=== PATIENT | female | born 1990 | race Caucasian/White ===

== ENCOUNTER → 2018-06-02 | Outpatient (CLI) | payer OTHER ==
--- NOTE | 2018-06-03 11:24 | US ---
EXAMINATION TYPE: US carotid duplex BILAT DATE OF EXAM: 06/02/2018 COMPARISON: NONE CLINICAL HISTORY: R41.0 CONFUSION; patient stated has confusion regarding switching words; left arm w eakness and numbness; has postural orthostatic tachycardia syndrome since age16; on Beta blockers x 2 months; on cholesterol lowering medications x 2 weeks; having MRI of brain next week; smoker EXAM MEASUREMENTS: RIGHT: Peak Systolic Velocity (PSV) cm/sec ----- Right CCA: 139.0 distal ----- Right ICA: 133.0 mid ----- Right ECA: 116.0 ICA/CCA ratio: 0.96 RIGHT: End Diastole cm/sec ----- Right CCA: 27.2 ----- Right ICA: 40.5 ----- Right ECA: 13.3 LEFT: Peak Systolic Velocity (PSV) cm/sec ----- Left CCA: 117.0 distal ----- Left ICA: 114.0 prox ----- Left ECA: 109.0 ICA/CCA ratio: 0.97 LEFT: End Diastole cm/sec ----- Left CCA: 28.5 ----- Left ICA: 29.1 ----- Left ECA: 8.22 VERTEBRALS (direction of flow): Right Vertebral: Antegrade Left Vertebral: Antegrade Rhythm: Normal Elevated PSV is noted throughout bilateral carotid systems without evidence of carotid artery stenosi s. Grayscale, color Doppler, spectral Doppler imaging performed of the carotid arteries. Waveform analys is does not show significant stenosis. IMPRESSION: No hemodynamic significant stenosis of the proximal internal carotid arteries bilaterall y by Doppler criteria, an indirect measurement of carotid stenosis
== END | disposition home or self-care (01) ==
LOC: RADUSWWP 15:39
PROVIDERS: ATTEND Family Medicine
DX: R41.0 Disorientation, unspecified (principal); Z88.5 Allergy status to narcotic agent; Z88.8 Allergy status to other drugs, medicaments and biological substances; Z91.040 Latex allergy status
CPT/HCPCS: 93880

== ENCOUNTER → 2018-06-05 | Outpatient (CLI) | payer OTHER ==
--- NOTE | 2018-06-05 22:13 | MR ---
EXAMINATION TYPE: MR brain wo/w con DATE OF EXAM: 06/05/2018 COMPARISON: NONE HISTORY: Confusion, dizziness, headaches, lt arm numbness TECHNIQUE: Multiplanar, multisequence images of the brain and brainstem is performed without and with IV contras t, utilizing 6 mL intravenous Gadavist . FINDINGS: Diffusion weighted images demonstrate no evidence of a recent infarct or other diffusion ab normality. There is no extra-axial fluid collection or significant white matter signal abnormality. The ventricular system and cisternal spaces are normal in size and appearance. The brain volume is age appropriate. Midline structures demonstrate normal morphology. The craniocervical junction appears within normal limits. Post contrast images demonstrate no abnormal enhancement. The dural venous sinuses appear pa tent. The visualized sinuses are clear and the globes are intact. IMPRESSION: Fairly unremarkable study. No suspicious finding is seen to account for patient's symptom s.
== END | disposition home or self-care (01) ==
LOC: RADMRIMAIN 20:54
PROVIDERS: ATTEND Family Medicine
DX: R41.0 Disorientation, unspecified (principal)
CPT/HCPCS: 70553; A9585

== ENCOUNTER → 2018-06-13 | Outpatient (CLI) | payer OTHER ==
[2018-06-13 17:21] LABS: LDL Cholesterol,Calculated 191.6 mg/dL (0.0-131.0); VLDL Calculation 15.4 mg/dL (5.00-40.00)
== END ==
LOC: LABWHC1 10:57
PROVIDERS: ATTEND Internal Medicine Cardiovascular Disease
DX: E78.5 Hyperlipidemia, unspecified (principal)
CPT/HCPCS: 36415; 80061; 84450; 84460

== ENCOUNTER 2018-06-21 13:41 | Emergency (ER) | payer OTHER ==
--- NOTE | 2018-06-21 14:50 | CT ---
EXAMINATION TYPE: CT brain wo con DATE OF EXAM: 06/21/2018 COMPARISON: NONE HISTORY: Left ear canal with blood, headaches CT DLP: 1032.4 mGycm. Automated Exposure Control for Dose Reduction was Utilized. TECHNIQUE: CT scan of the head is performed without contrast. FINDINGS: There is no acute intracranial hemorrhage, mass effect, or midline shift identified. The ventricles and sulci are within normal limits in size. The globes are intact and the visualized sin uses are clear. Mastoid air cells are well aerated as are the middle ear cavities. External auditory canals are patent. IMPRESSION: No acute intracranial hemorrhage, mass effect, or midline shift is seen. No fluid is see n within the middle ear cavity nor mastoid air cells. No cerumen impaction of the external auditory c anals.
[2018-06-21] MEDS ORDERED: KETOROLAC 30 MG/ML 1 ML VIAL IM STA (15:06)
--- NOTE | 2018-06-21 15:06 | ED ---
Headache HPI - General Chief Complaint: Headache Stated Complaint: Headaches Time Seen by Provider: 06/21/18 14:08 Mode of arrival: ambulatory Limitations: no limitations - History of Present Illness Initial Comments: 27-year-old male presenting for headache ear pain 3-4 weeks. Patient states she has had a headache and some ear pain as well as jaw pain since she had her upper wisdom teeth removed by Dr. Alanis. She states she was told she had a bone chip of the left upper jaw that occurred during the surgery. Patient states she has had consistent pain since that is helped mildly by Tylenol No. 3. Patient states she had about 3 days of no symptoms however for the past 3 days they have returned. She states they're identical to when she experienced some postoperatively. She denies any fever or night sweats facial swelling she denies any general malaise. She has a visual changes sensation deficits of the upper or lower extremities she denies any weakness of the upper or lower extremities these changes neck stiffness nausea vomiting photophobia diplopia. Patient states she did look in her ear and thought she saw something red in the right ear. Patient was concerned that the headache was last along although she was told by Dr. Alanis she may experience these symptoms (per pt). Upon arrival patient appears well nontoxic - Related Data Home Medications Medication Instructions Recorded Confirmed ALPRAZolam [Xanax] 0.25 mg PO DAILY PRN 06/21/18 06/21/18 Evolocumab [Repatha Syringe] 140 mg SQ Q14D 06/21/18 06/21/18 Ibuprofen [Motrin] 800 mg PO TID PRN 06/21/18 06/21/18 Metoprolol Tartrate [Lopressor] 12.5 mg PO BID 06/21/18 06/21/18 Mometasone Furoate [Nasonex Nasal 1 spray EA NOSTRIL DAILY PRN 06/21/18 06/21/18 [place]] PARoxetine [Paxil] 20 mg PO DAILY 06/21/18 06/21/18 Allergies Allergy/AdvReac Type Severity Reaction Status Date / Time acetaminophen Allergy Nausea & Verified 06/21/18 14:14 [From Darvocet-N] Vomiting propoxyphene Allergy Nausea & Verified 06/21/18 14:14 [From Darvocet-N] Vomiting Review of Systems ROS Statement: Those systems with pertinent positive or pertinent negative responses have been documented in the HPI. ROS Other: All systems not noted in ROS Statement are negative. Past Medical History Additional Past Medical History / Comment(s): hypotension History of Any Multi-Drug Resistant Organisms: None Reported Past Surgical History: Orthopedic Surgery, Tonsillectomy Additional Past Surgical History / Comment(s): wisdom teeth, anahi feet Past Psychological History: Anxiety Smoking Status: Current every day smoker Past Alcohol Use History: None Reported Past Drug Use History: None Reported General Exam - General Exam Comments Initial Comments: General: The patient is awake and alert, in no distress, and does not appear acutely ill. Eye: +3 mm pupils are equal, round and reactive to light, extra-ocular movements are intact. No nystagmus. There is normal conjunctiva bilaterally. No signs of icterus. Ears, nose, mouth and throat: There are moist mucous membranes and no oral lesions. No facial swelling no oral abscess.. TM no abnormalities of the EAC or TM. Neck: The neck is supple, there is no tenderness or JVD. Cardiovascular: There is a regular rate and rhythm. No murmur, rub or gallop is appreciated. Respiratory: Lungs are clear to auscultation, respirations are non-labored, breath sounds are equal. No wheezes, stridor, rales, or rhonchi. Gastrointestinal: Soft, non-distended, non-tender abdomen without masses or organomegaly noted. There is no rebound or guarding present. No CVA tenderness. Bowel sounds are unremarkable. Musculoskeletal: Normal ROM, no tenderness. Strength 5/5. Sensation intact. Radial pulses equal bilaterally 2+. Neurological: A&O x 3. CN II-XII intact, memory intact to immediately, intermediate and car rider recall. Able to follow simple verbal. Able to name a common object (pen). High quality, labial (pa) and lingual (la) spe Light touch and temperature sensation present over the face, chest, abdomen, back, UE bilaterally, and LE bilaterally. Able to localize point during point localization b/l and extinction. No visible bulk atrophy, hypertrophy, fasciculations, or myoclonus of the UE or LE b/l. Full PROM in UE and LE b/l. Bilateral muscle strength 5/5 for the following muscles: deltoid, biceps, triceps, brachioradialis, wrist extensors/flexor, hip flexor, hip abductors/adductors, hamstrings, quadriceps, feet dorsiflexors/plantar flexors. Finger to nose, finger to the examiners finger, and heel to reece coordinated and accurate b/l. Coordinated and even demonstration of hand flip, finger to thumb, and toe tap b/l. Gait is coordinated and even in stride with tandem, toe and heel walk. Maintains balance with monopedal stance. (-) Romberg. (-) pronator drift. No nuchal rigidity. (-) Brudzinskis and Kernig signs. Skin: Skin is warm and dry and no rashes or lesions are noted. Psychiatric: Cooperative, appropriate mood & affect, normal judgment. Limitations: no limitations Course Vital Signs 06/21/18 06/21/18 14:02 15:20 Temperature 98.5 F 99.2 F Pulse Rate 74 57 L Respiratory 20 18 Rate Blood Pressure 127/73 112/76 O2 Sat by Pulse 98 97 Oximetry Medical Decision Making - Medical Decision Making Well-appearing 27-year-old female presenting for jaw ear and headache. Patient had removal of her upper wisdom teeth 3 weeks prior. Patient states the symptoms have been pretty persistent since. She states she was told she had a bone chip of the left upper aspect. She states this is where most the pain is. Patient is most concerned they're lasting so long and presents emergency department for evaluation. Patient has no focal deficits on examination. She denies any constitutional symptoms such as fever chills night sweats. She has no focal I swelling of the oral cavity nor face. No anterior or posterior lymphadenopathy. Tympanic membranes and external ocular canals within normal limits. Hearing intact. Patient appears well nontoxic. Vital signs within acceptable limits. CT was obtained revealing no acute process. At this time feel pt complaints most likely related to recent surgery, especially with history of bone chip. She is to follow-up with oral surgery as well as ENT. I discussed the case in detail with Dr. Rodriguez with this time is agreeable to plan of discharge and outpatient follow-up. Patient is agreeable to plan as well as all return parameters which were discussed at length which included immediate return for 12 and a fever worsening symptoms or facial swelling. Patient verbalized understanding and was discharged appearing well Disposition Clinical Impression: Headache, Ear pain, Jaw pain Disposition: HOME SELF-CARE Condition: Good Instructions (If sedation given, give patient instructions): Acute Headache (ED) Additional Instructions: Please use medication as discussed. Please follow-up with family doctor in the next 2 days, please follow-up with your oral surgeon. Please return to emergency room if the symptoms increase or worsen or for any other concerns, neck stiffness, fever, increase in headache Is patient prescribed a controlled substance at d/c from ED?: No Referrals: Sergio Bal MD [Primary Care Provider] - 1-2 days Eliud Alanis DDS [STAFF PHYSICIAN] - 1-2 days Mike Lopez MD [STAFF PHYSICIAN] - 1-2 days Time of Disposition: 15:06
[2018-06-21 15:21] VITALS: BP 112/76; PULSE 57; RESP 18; TEMP 99.2
== END 2018-06-21 15:20 | disposition home or self-care (01) ==
LOC: EC 13:41
DX: R51 Headache (principal); R68.84 Jaw pain; H92.09 Otalgia, unspecified ear; F41.9 Anxiety disorder, unspecified; F17.200 Nicotine dependence, unspecified, uncomplicated; Z79.899 Other long term (current) drug therapy; Z88.5 Allergy status to narcotic agent; Z88.6 Allergy status to analgesic agent
CPT/HCPCS: 70450; 99284; 96372; J1885

== ENCOUNTER → 2020-01-04 | Outpatient (CLI) | payer OTHER ==
--- NOTE | 2020-01-04 15:17 | XR ---
EXAMINATION TYPE: XR cervical spine comp DATE OF EXAM: 01/04/2020 COMPARISON: None HISTORY: Neck and back pain TECHNIQUE: Five-view cervical spine FINDINGS: Foramen are patent. Prevertebral space is normal. Posterior spinal lamellar line is straigh tened. There is a kyphosis centered at approximately C4 within the upper cervical spine. Disc heights are preserved. Vertebral body heights are preserved. Odontoid is limited with overlying maxilla and occiput. IMPRESSION: 1. Cervical kyphosis in the upper cervical spine. 2. No acute osseous abnormality
--- NOTE | 2020-01-04 15:25 | XR ---
EXAMINATION TYPE: XR thoracic spine 2V DATE OF EXAM: 01/04/2020 COMPARISON: None HISTORY: Pain TECHNIQUE: Three-view thoracic spine FINDINGS: There are 12 thoracic type vertebral bodies. Pedicles are intact. Disc heights are preserve d. Vertebral body heights are preserved. There is a scoliosis through the thoracic spine with convexi ty to the right centered at T6. IMPRESSION: 1. Scoliosis.
--- NOTE | 2020-01-04 15:26 | XR ---
EXAMINATION TYPE: XR lumbosacral spine min 4V DATE OF EXAM: 01/04/2020 COMPARISON: None HISTORY: Pain TECHNIQUE: Five-view lumbar spine FINDINGS: There 5 lumbar-type vertebral bodies. The pedicles are intact. No spondylolytic defects are evident. Disc heights are preserved. Vertebral body heights are preserved. Alignment is normal. IMPRESSION: 1. Normal 5 view lumbar spine
== END | disposition home or self-care (01) ==
LOC: RADXRMAIN 12:54
PROVIDERS: ATTEND Internal Medicine
DX: M41.84 Other forms of scoliosis, thoracic region (principal); M54.5 Low back pain
CPT/HCPCS: 72050; 72070; 72110

== ENCOUNTER 2020-08-29 12:41 | Emergency (ER) | payer OTHER ==
[2020-08-29 12:52] VITALS: BP 119/78; PULSE 78; RESP 20; TEMP 98.1
--- NOTE | 2020-08-29 14:01 | ED ---
ENT HPI - General Chief complaint: ENT Stated complaint: Ear pain & mouth infection Time Seen by Provider: 08/29/20 12:56 Source: patient, RN notes reviewed Mode of arrival: ambulatory Limitations: no limitations - History of Present Illness Initial comments: 30-year-old female presents emergency Department chief complaint of right-sided dental infection. Patient's been having issues in which she states she started having drainage and which she describes as pus like material. Patient has been seen by dentist unclear what is happening. Patient denies any fevers or chills states this pain that radiates towards her right ear which is concerned today. She states several weeks ago she was on antibiotics. Denies any difficulty swallowing no sore throat no headache. - Related Data Home Medications Medication Instructions Recorded Confirmed ALPRAZolam [Xanax] 0.25 mg PO DAILY PRN 06/21/18 06/21/18 Evolocumab [Repatha Syringe] 140 mg SQ Q14D 06/21/18 06/21/18 Ibuprofen [Motrin] 800 mg PO TID PRN 06/21/18 06/21/18 Metoprolol Tartrate [Lopressor] 12.5 mg PO BID 06/21/18 06/21/18 Mometasone Furoate [Nasonex Nasal 1 spray EA NOSTRIL DAILY PRN 06/21/18 06/21/18 [place]] PARoxetine [Paxil] 20 mg PO DAILY 06/21/18 06/21/18 Previous Rx's Medication Instructions Recorded Amoxicillin/Potassium Clav 1 tab PO Q12HR #20 tab 08/29/20 [Augmentin 875-125 Tablet] Allergies Allergy/AdvReac Type Severity Reaction Status Date / Time acetaminophen Allergy Nausea & Verified 08/29/20 12:52 [From Darvocet-N] Vomiting propoxyphene Allergy Nausea & Verified 08/29/20 12:52 [From Darvocet-N] Vomiting Review of Systems ROS Statement: Those systems with pertinent positive or pertinent negative responses have been documented in the HPI. ROS Other: All systems not noted in ROS Statement are negative. Past Medical History Past Medical History: Asthma Additional Past Medical History / Comment(s): hypotension History of Any Multi-Drug Resistant Organisms: None Reported Past Surgical History: Orthopedic Surgery, Tonsillectomy Additional Past Surgical History / Comment(s): wisdom teeth, anahi feet Past Psychological History: Anxiety Smoking Status: Current every day smoker Past Alcohol Use History: None Reported Past Drug Use History: None Reported General Exam Limitations: no limitations General appearance: alert, in no apparent distress Head exam: Present: atraumatic, normocephalic, normal inspection Eye exam: Present: normal appearance, PERRL, EOMI. Absent: scleral icterus, conjunctival injection, periorbital swelling ENT exam: Present: mucous membranes moist, TM's normal bilaterally, normal external ear exam. Absent: normal exam, normal oropharynx (Mild erythema along the gumline noted in the right upper) Neck exam: Present: normal inspection, full ROM. Absent: tenderness, meningismus, lymphadenopathy Respiratory exam: Present: normal lung sounds bilaterally. Absent: respiratory distress, wheezes, rales, rhonchi, stridor Cardiovascular Exam: Present: regular rate, normal rhythm, normal heart sounds. Absent: systolic murmur, diastolic murmur, rubs, gallop, clicks Course Vital Signs 08/29/20 12:50 Temperature 98.1 F Pulse Rate 78 Respiratory 20 Rate Blood Pressure 119/78 O2 Sat by Pulse 99 Oximetry Medical Decision Making - Medical Decision Making X-rays unremarkable. Patient will be placed on Augmentin. Patient will follow- up with oral surgery return parameters were discussed. Disposition Clinical Impression: Dental infection, Otalgia Disposition: HOME SELF-CARE Condition: Stable Instructions (If sedation given, give patient instructions): Toothache (ED) Additional Instructions: Please return to the Emergency Department if symptoms worsen or any other concerns.Please follow up with the [facility] dental clinic. [facility] [place] [address]. Phone number for new patients or [phone] for existing patients. Prescriptions: Amoxicillin/Potassium Clav [Augmentin 875-125 Tablet] 1 tab PO Q12HR #20 tab Is patient prescribed a controlled substance at d/c from ED?: No Referrals: Ab Mensah MD [Primary Care Provider] - 1-2 days Hernesto Diaz DDS [STAFF PHYSICIAN] - 1-2 days Time of Disposition: 14:17
--- NOTE | 2020-08-29 14:05 | XR ---
EXAMINATION TYPE: XR mandible limited <4V DATE OF EXAM: 08/29/2020 COMPARISON: NONE HISTORY: right side dental infection. TECHNIQUE: 5 views mandible FINDINGS: No definite acute fracture, dislocation or bony erosion; CT is more sensitive. Direct visualization is recommended for dental infection. IMPRESSION: No definite acute fracture, dislocation or bony erosion; CT is more sensitive. Direct visualization is recommended for dental infection.
== END 2020-08-29 14:34 | disposition home or self-care (01) ==
LOC: EC 12:41
DX: K04.7 Periapical abscess without sinus (principal); J45.909 Unspecified asthma, uncomplicated; F41.9 Anxiety disorder, unspecified; F17.200 Nicotine dependence, unspecified, uncomplicated; Z79.1 Long term (current) use of non-steroidal anti-inflammatories (NSAID); Z79.51 Long term (current) use of inhaled steroids
CPT/HCPCS: 70100; 99283

== ENCOUNTER → 2023-10-24 | Outpatient (CLI) | payer OTHER ==
--- NOTE | 2023-10-24 10:48 | USB ---
Reason for Exam: Clinical finding. Findings: The whole breast of both breasts, the axilla of both breasts and the retroareolar of both breasts were scanned. No solid or cystic masses are identified. There is some mild duct prominence posterior to the right nipple. If patient's pain is persistent, follow-up mammogram in 3 months could be performed. In the absence of persistent pain or change in clinical symptoms, a sliding screening mammography could be performed at age 35.No solid or cystic masses are identified. There is some mild duct prominence posterior to the right nipple. If patient's pain is persistent, follow-up mammogram in 3 months could be performed. In the absence of persistent pain or change in clinical symptoms, a baseline screening mammography could be performed at age 35. Overall Assessment: Benign, BI-RAD 2 Management: Screening Mammogram of both breasts at age 35. A clinical breast exam by your physician is recommended on an annual basis and results should be correlated with mammographic findings. This exam should not preclude additional follow-up of suspicious palpable abnormalities. Results were given to the patient verbally at the time of exam. [facility], , 10/24/2023 10:46 AM. Electronically signed and approved by: Fredrick Joe D.O. Radiologis
--- NOTE | 2023-10-24 11:35 | US ---
EXAMINATION TYPE: US abdomen complete DATE OF EXAM: 10/24/2023 COMPARISON: NONE CLINICAL INDICATION: Female, 33 years old with history of R10.9 ABD PAIN; Right side pain. TECHNIQUE: Multiple sonographic images of the abdomen are obtained. FINDINGS: EXAM MEASUREMENTS: Liver Length: 15.4 cm Gallbladder Wall: 0.2 cm CBD: 0.5 cm Spleen: 10.8 cm Right Kidney: 10.8 x 5.0 x 4.8 cm Left Kidney: 12.2 x 4.3 x 5.2 cm Pancreas: wnl Liver: wnl Gallbladder: No stones or wall thickening Evidence for sonographic Blanco's sign: neg CBD: wnl Spleen: wnl Right Kidney: Appears slightly low and into the pelvis region. Possible malrotation. Left Kidney: No hydronephrosis or masses seen Upper IVC: wnl Abd Aorta: No AAA visualized at time of scan IMPRESSION: 1. Unremarkable abdomen ultrasound. [facility], , 10/24/2023 11:33 AM
== END | disposition home or self-care (01) ==
LOC: RADUSWWP 09:34
PROVIDERS: ATTEND Family Medicine
DX: N64.4 Mastodynia (principal); R10.9 Unspecified abdominal pain
CPT/HCPCS: 76700

== ENCOUNTER → 2024-01-27 | Outpatient (CLI) | payer OTHER ==
--- NOTE | 2024-01-27 14:26 | MM ---
Reason for Exam: Clinical finding. Baseline mammogram. Patient History: Menarche at age 13. First Full-Term at age 32. Late child-bearing (after 30). Premenopausal. Paternal grandmother had breast cancer at or over age 50. Last menstrual period: 01/19/2024 Prior Study Comparison: 10/24/2023 Bilateral US breast BILAT, [facility]. Patient's first Mammogram. Tissue Density: The breasts are extremely dense, which lowers the sensitivity of mammography. Findings: Analyzed By CAD. No evidence for mass or distortion. The examination is limited by extreme breast fibroglandular tissue. Given patient's continued symptoms do recommend MRI for further evaluation. No suspicious calcifications. No skin thickening appreciated at this time. Overall Assessment: Incomplete: need additional imaging evaluation, BI-RAD 0 Management: Diagnostic Breast MRI of both breasts. . Results were given to the patient verbally at the time of exam. Patient should continue monthly self-breast exams. A clinical breast exam by your physician is recommended on an annual basis. This exam should not preclude additional follow-up of suspicious palpable abnormalities. Note on Miya scores and lifetime risk: 1. A Miya score greater than 3% is considered moderate risk. If this is the case, consider specialist referral to assess eligibility for a risk reducing agent. 2. If overall lifetime risk for the development of breast cancer is 20% or higher, the patient may qualify for future screening with alternating mammogram and breast MRI. [facility], , 01/27/2024 2:23 PM. Electronically signed and approved by: Al Serna M.D. Radiologis
== END | disposition home or self-care (01) ==
LOC: RADMAMWWP 14:02
PROVIDERS: ATTEND Family Medicine
DX: N64.52 Nipple discharge (principal); Z80.3 Family history of malignant neoplasm of breast; R92.343 Mammographic extreme density, bilateral breasts
CPT/HCPCS: 77066; G0279; 77062

== ENCOUNTER → 2024-02-09 | Outpatient (CLI) | payer OTHER ==
[2024-02-09 13:51] VITALS: BP 119/76; PULSE 71; RESP 16; TEMP 98.4
--- NOTE | 2024-02-09 14:34 | P.GSCN ---
History of Present Illness Consult date: 02/09/24 Reason for Consult: breast pain Requesting physician: Maribel Hoffman History of present illness: Chung is a 33 year old female seen in consultation for Dr. Hoffman regardign breast pain. She had a bilateral breast ultrasound on 10-24-23 which was BIRAD 2, she had a bilateral mammogram on 01-27-24 which showed very dense breat and bilateral MRI recommended. This was personally interpreted. She is having bloody nipple discharge and has purluent drainage. She has had some hot flashes, but not fever or chills. She has a hard lump on her right nipple. After 1 year she stopped breast feeding in May. She also complains of pain under the left breast. She does have bilateral milky discharge. She had a clogged milk duct in the past. She has not had any surgery on her breast. NO recent trauma to her breast. Her breast symptoms are not related to her menstrual cycle. She just recently completed a course of antibiotic therapy of Flagyl for the nipple discharge which cultures were done and this was positive, she does not know the names of the organisms. States a prolactin level was done in her primary care doctor's office and was within normal limits. Caffeine: 1 energy drink and 1 cup of coffee/day nicotine: < 1/2 PPD; she was smoking when she was breast feeding chocolate: none BCP: 2 months, not recently hormones: none Family History: paternal grandmother: breast cancer paternal grandfather: skin cancer maternal grandfather: kidney and bone cancer, skin cancer Hormonal History: menarche: 13 , breast fed: yes, age at : 32 periods regular coming early Surgical HIstory: Tonsillectomy flat feet Medical History: asthma POTS fibromylagia familal hypercholesterolamia Social History: nicotine: as above alcohol: none drugs: none Review of Systems - Constitutional Denies fever, Denies weight loss - EENT Eyes: denies blurred vision Ears: deny: decreased hearing, tinnitus Ears, nose, mouth and throat: Denies dysphagia - Breasts bilateral: as per HPI - Cardiovascular Reports as per HPI, Denies chest pain, Denies shortness of breath - Respiratory Respiratory Comment(s): used to have asthma Reports cough - Gastrointestinal Gastrointestinal Comment(s): upset stomach Reports as per HPI - Genitourinary Genitourinary: Denies dysuria, Denies hematuria Menstruation: Reports period normal - Musculoskeletal Musculoskeleta Comment(s): back and neck pain - Integumentary Integumentary Comment(s): crusty spot near the right nipple went away Denies rash, Denies unusual bruising - Neurological Denies headaches, Denies syncope - Psychiatric Reports anxiety - Endocrine Reports fatigue - Hematologic/Lymphatic Denies easy bleeding, Denies easy bruising - Allergic/Immunologic Reports seasonal allergies Past Medical History Past Medical History: Asthma Additional Past Medical History / Comment(s): hypotension History of Any Multi-Drug Resistant Organisms: None Reported Past Surgical History: Orthopedic Surgery, Tonsillectomy Additional Past Surgical History / Comment(s): wisdom teeth, anahi feet Past Psychological History: Anxiety Smoking Status: Current every day smoker Past Alcohol Use History: None Reported Past Drug Use History: None Reported Medications and Allergies Home Medications Medication Instructions Recorded Confirmed Type ALPRAZolam [Xanax] 0.25 mg PO DAILY PRN 06/21/18 02/09/24 History Evolocumab [Repatha Syringe] 140 mg SQ Q14D 06/21/18 02/09/24 History Ibuprofen [Motrin] 800 mg PO TID PRN 06/21/18 02/09/24 History Metoprolol Tartrate [Lopressor] 12.5 mg PO BID 06/21/18 02/09/24 History Mometasone Furoate [Nasonex Nasal 1 spray EA NOSTRIL DAILY PRN 06/21/18 02/09/24 History [place]] PARoxetine [Paxil] 20 mg PO DAILY 06/21/18 02/09/24 History Amoxicillin/Potassium Clav 1 tab PO Q12HR #20 tab 08/29/20 02/09/24 Rx [Augmentin 875-125 Tablet] Allergies Allergy/AdvReac Type Severity Reaction Status Date / Time acetaminophen Allergy Nausea & Verified 02/09/24 13:48 [From Darvocet-N] Vomiting propoxyphene Allergy Nausea & Verified 02/09/24 13:48 [From Darvocet-N] Vomiting Surgical - Exam Vital Signs Temp Pulse Resp BP Pulse Ox 98.4 F 71 16 119/76 99 02/09/24 13:48 02/09/24 13:48 02/09/24 13:48 02/09/24 13:48 02/09/24 13:48 - General moderate distress - Eyes normal ocular movement - ENT no hearing loss - Neck trachea midline - Respiratory normal respiratory effort - Cardiovascular Rhythm: regular Heart Sounds: normal: S1, S2 - Abdomen Abdomen: soft, non tender, no guarding, no rigid, no rebound - Integumentary normal turgor - Neurologic no disoriented, no combative - Musculoskeletal normal gait - Psychiatric oriented to time, oriented to person, oriented to place, speech is normal, memory intact Breast Exam: BRA: 32DD Inspection: Bilateral grade 1 ptosis, right nipple is larger than left nipple Palpation: Right breast: Multi positional exam fibrocystic changes, dense breast, milk discharge from the nipple however there is also what appears to be sebum from the upper inner quadrant area of the nipple, no blood on today's exam, guaiac test negative Right axilla: No adenopathy of concern Left breast: Multi positional exam fibrocystic changes, dense breast, milky discharge from the nipples Left axilla: No adenopathy of concern Results Bilateral mammogram reviewed, very dense breast Breast ultrasound reviewed and personally interpreted Assessment and Plan Assessment: Impression: Bloody right nipple discharge which has stopped and now has just some thick nipple discharge Bilateral milky nipple discharge Very dense breast on exam Bloody discharge and green discharge has stopped with the antibiotic therapy Plan: bilateral breast MRI follow up after this is done obtain prolactin level follow up after the above Pain cultures from primary care doctor's office of the nipple discharge CC: Dr. Ryder Boogie
== END ==
LOC: WWCWWP 12:42
PROVIDERS: ATTEND Surgery
DX: N64.52 Nipple discharge (principal); R92.343 Mammographic extreme density, bilateral breasts; F17.200 Nicotine dependence, unspecified, uncomplicated; Z88.5 Allergy status to narcotic agent; Z88.8 Allergy status to other drugs, medicaments and biological substances; Z80.3 Family history of malignant neoplasm of breast

== ENCOUNTER → 2024-03-12 | Outpatient (CLI) | payer OTHER ==
--- NOTE | 2024-03-14 07:48 | BMR ---
EXAM DATE: 03/12/2024 EXAM DESCRIPTION: MRI-Breast Bilat (W/WO Contrast) INDICATION: Infected nipple with green pus and hard lump. Left breast pain near ribs. Family history of breast cancer in grandmother. COMPARISON: PRIOR MRIs: None available. Correlation to mammograms: 01/27/2024 Correlation to ultrasound: 10/24/2023. CONTRAST: 5.5 cc Gadavist IV gadolinium contrast TECHNIQUE: Images were obtained at [facility] and interpreted by [facility] Radiology. Multiplanar multisequence MR imaging of both breasts was performed with a dedicated breast coil. Images were obtained before and after administration of IV gadolinium, using the standard breast mass protocol. Computer aided detection was utilized for interpretation. FINDINGS: LMP: Not provided General breast composition: The breast tissue is extremely dense Background parenchymal enhancement: Mild RIGHT BREAST: Along the medial aspect of the nipple, there is a 1.6 cm ring-enhancing mass most compatible with abscess. Head approximately 12 o'clock, 7 cm from the nipple, there is abnormal enhancement/mass estimating 2.4 x 1.3 cm abutting the pectoralis muscle. Additional areas of enhancement in the right breast considered benign. LEFT BREAST: The T2 weighted series shows no areas of abnormal signal intensity. Review of the dynamic series shows no early or abnormal enhancement. LYMPH NODES: There is no evidence of internal mammary or axillary adenopathy. IMPRESSION: RIGHT BREAST: 1. 1.6 cm ring-enhancing lesion along the medial right nipple most compatible with nipple abscess. Antibiotic therapy and therapeutic aspiration is recommended with short-term follow-up to ensure resolution. 2. Mildly enhancing 2.4 cm masslike area in the right breast at 12 o'clock, 7 cm from the nipple. Targeted ultrasound possible biopsy is recommended. LEFT BREAST: No MR evidence of malignancy. OVERALL ASSESSMENT -- BI-RADS 4: Suspicious for malignancy ANNUAL SCREENING BREAST MRI IN ADDITION TO MAMMOGRAPHY IS RECOMMENDED IN PATIENTS WITH LIFETIME RISK OF BREAST CANCER >20% MTDD
== END | disposition home or self-care (01) ==
LOC: RADMRIMAIN 17:51
PROVIDERS: ATTEND Surgery
DX: N64.52 Nipple discharge (principal); Z80.3 Family history of malignant neoplasm of breast
CPT/HCPCS: C8908; A9585; 77049

== ENCOUNTER → 2024-03-22 | Day surgery (SDC) | payer OTHER ==
--- NOTE | 2024-03-28 11:39 | USB ---
Prior Study Comparison: 01/27/2024 Bilateral MG 3D diag mammo w/cad [facility]. Pathology Description: Location: 11 o'clock. Marker Left Behind. Needle Type: Mammotome Cores: 4 Gauge: 13 The oval hypoechoic nodule in the peripheral 11:00 position right breast nearly at the axillary tail is identified and targeted for biopsy. This measures 1.4 x 0.6 x 0.4 cm. Not entirely clear if this corresponds to the MRI finding noted at the 12:00 position. If benign results, six-month follow-up MRI is recommended to determine exact clip position and to reassess the 12:00 MRI finding. Presently, the 12:00 position is rescanned and no discrete ultrasound abnormality is seen. The procedure of ultrasound guided core biopsy was explained to the patient. Benefits, alternatives, and risks were discussed. An informed consent was then obtained. The patient was placed in supine positioning for imaging and for the procedure. The overlying skin was prepped and draped in usual sterile fashion. Lidocaine buffered with bicarbonate was used as anesthetic into the skin followed by lidocaine/epinephrine into the subcutaneous tissue up to area of concern in the right breast. Under ultrasound guidance, a 13-gauge vacuum-assisted mammotome Elite biopsy gun device was used to obtain 4 core samples. Following this, a HydroMark butterfly clip was left in lesion. The patient tolerated the procedure well without any immediate complication. The patient was kept in the radiology department for short stay after the procedure and then discharged home in stable condition. Postprocedure mammogram: Not performed given far peripheral/axillary position. IMPRESSION: Successful, uncomplicated ultrasound guided core biopsy of nodule in the far peripheral 11:00 right breast near the axillary tail. In the setting of nipple infection, this may represent a reactive lymph node. Not entirely clear as to if this corresponds to the MRI finding noted at the 12:00 position. If benign results, six-month follow-up MRI is recommended to determine exact clip position in relation to the 12:00 MRI finding. The MRI finding can also be reassessed at that time. Full pathology results to follow. [facility], , 03/22/2024 10:48 AM. Pathology Results: Result: Benign. RIGHT BREAST, 11:00, ULTRASOUND GUIDED BIOPSY: Fragments of reactive lymphoid tissue (see note). Negative for malignancy. Notes Examination shows multiple circumscribed areas having reactive lymphoid tissue with reactive germinal centers present. Examination is negative for granulomatous inflammation or features of malignancy. To confirm the diagnosis, immunostains are performed with appropriate controls on the tissue block. CD79a stains positive within B-cells. CD3 stains positive within T-cells and has a predominance of T-cell staining over B-cell staining. These findings support the diagnosis of reactive lymphadenopathy. Both CK7 and FABIAN stains are negative for carcinoma. Overall Assessment: Benign Management: Diagnostic Breast MRI of both breasts in 6 months. Compatible with reactive lymph node in setting of nipple infection. Recommend 6 month follow up breast MRI to reassess to 12:00 area seen on MRI and to determine if the biopsied site corresponds to this area. Electronically signed and approved by: Israel Roegrs M.D. Radiologist
== END ==
LOC: RADUSWWP 07:07
PROVIDERS: ATTEND Surgery
DX: N63.10 Unspecified lump in the right breast, unspecified quadrant (principal)
CPT/HCPCS: 88305; 88342; 88341; 19083; A4648

== ENCOUNTER → 2024-04-12 | Outpatient (CLI) | payer OTHER ==
[2024-04-12 11:07] VITALS: BP 134/84; PULSE 88; RESP 16; TEMP 98.3
--- NOTE | 2024-04-12 11:32 | P.PN ---
Subjective Progress Note Date: 04/12/24 History of Present Illness Reason for Consult: breast pain Requesting physician: Maribel Hoffman History of present illness: 02-09-24 Chung is a 33 year old female seen in consultation for Dr. Hoffman regardign breast pain. She had a bilateral breast ultrasound on 10-24-23 which was BIRAD 2, she had a bilateral mammogram on 01-27-24 which showed very dense breast and bilateral MRI recommended. This was personally interpreted. She is having bloody nipple discharge and has purluent drainage. She has had some hot flashes, but not fever or chills. She has a hard lump on her right nipple. After 1 year she stopped breast feeding in May. She also complains of pain under the left breast. She does have bilateral milky discharge. She had a clogged milk duct in the past. She has not had any surgery on her breast. No recent trauma to her breast. Her breast symptoms are not related to her menstrual cycle. She just recently completed a course of antibiotic therapy of Flagyl for the nipple discharge which cultures were done and this was positive, she does not know the names of the organisms. States a prolactin level was done in her primary care doctor's office and was within normal limits. 03-15-24 Chung was seen in the ER yesterday with a complaint of breast pain. An MRI of the breast was done on 03-12-24, she had some swelling of the area of concern she had initially complained about and it got larger and started to drain; she has swelling behind the right nipple areolar complex with some green drainage from one of the ductal sites The patient states she did not have any activity that would precipitate the swelling in her breast. It came back within approximately 5 days of when it started the discomfort behind the nipple. She was put on bactrim She is not complaining of any fever or chills right breast: 1.6 cm rim enhancing lesion near right nipple possible abscess 2.4 cm masslike area at 12 O Clock, recommend ultrasound target biopsy left breast no lesions of concern 04-12-24 Ultrasound was performed of the 2 areas of concern of the right breast. The lesion that is at the 12 o'clock position near the chest wall was noted to be present and is amiable to ultrasound-guided core biopsy. This was reviewed personally with Dr. Schultz from radiology. The area at the nipple was not felt to be able to be aspirated. At the present time we will continue with ant ibiotic therapy and following results of the core biopsy of the 12:00 lesion will consider incision and drainage of the other site in the operating room. MRI bilateral breast on 03-12-24 right breast 1.6 cm rim enhancing lesion and 12:00 2.4 cm area 7 cmm from nipple; biopsy done felt to left breast: (-) nodes: (-) core biopsy of the 11:00/12:00 lesion in the right breast done on 03-21-24 biopsy fragments of reactive node; concern if this was the area noted on MRI adn repeat MRI in 6 months recommended diagnostic MRI of both breast in 6 months recommended Ultrasound-guided core biopsy lesion right breast 12:00 as soon as possible with follow-up after this is done Patient states that she had spontaneous drainage from behind the right nipple last week it is still draining and there is still a lump present, she is not complaining of any fever or chills Caffeine: 1 energy drink and 1 cup of coffee/day nicotine: < 1/2 PPD; she was smoking when she was breast feeding chocolate: none BCP: 2 months, not recently hormones: none Family History: paternal grandmother: breast cancer paternal grandfather: skin cancer maternal grandfather: kidney and bone cancer, skin cancer Hormonal History: menarche: 13 , breast fed: yes, age at : 32 periods regular coming early Surgical HIstory: Tonsillectomy flat feet Medical History: asthma POTS fibromylagia familal hypercholesterolamia Social History: nicotine: as above alcohol: none drugs: none Review of Systems - Constitutional Denies fever, Denies weight loss - EENT Eyes: denies blurred vision Ears: deny: decreased hearing, tinnitus Ears, nose, mouth and throat: Denies dysphagia - Breasts bilateral: as per HPI - Cardiovascular Reports as per HPI, Denies chest pain, Denies shortness of breath - Respiratory Respiratory Comment(s): used to have asthma Reports cough - Gastrointestinal Gastrointestinal Comment(s): upset stomach Reports as per HPI - Genitourinary Genitourinary: Denies dysuria, Denies hematuria Menstruation: Reports period normal - Musculoskeletal Musculoskeleta Comment(s): back and neck pain - Integumentary Integumentary Comment(s): crusty spot near the right nipple went away Denies rash, Denies unusual bruising - Neurological Denies headaches, Denies syncope - Psychiatric Reports anxiety - Endocrine Reports fatigue - Hematologic/Lymphatic Denies easy bleeding, Denies easy bruising - Allergic/Immunologic Reports seasonal allergies Past Medical History Past Medical History: Asthma Additional Past Medical History / Comment(s): hypotension History of Any Multi-Drug Resistant Organisms: None Reported Past Surgical History: Orthopedic Surgery, Tonsillectomy Additional Past Surgical History / Comment(s): wisdom teeth, anahi feet Past Psychological History: Anxiety Smoking Status: Current every day smoker Past Alcohol Use History: None Reported Past Drug Use History: None Reported Medications and Allergies Home Medications Medication Instructions Recorded Confirmed Type ALPRAZolam [Xanax] 0.25 mg PO DAILY PRN 06/21/18 02/09/24 History Evolocumab [Repatha Syringe] 140 mg SQ Q14D 06/21/18 02/09/24 History Ibuprofen [Motrin] 800 mg PO TID PRN 06/21/18 02/09/24 History Metoprolol Tartrate [Lopressor] 12.5 mg PO BID 06/21/18 02/09/24 History Mometasone Furoate [Nasonex Nasal 1 spray EA NOSTRIL DAILY PRN 06/21/18 02/09/24 History [place]] PARoxetine [Paxil] 20 mg PO DAILY 06/21/18 02/09/24 History Amoxicillin/Potassium Clav 1 tab PO Q12HR #20 tab 08/29/20 02/09/24 Rx [Augmentin 875-125 Tablet] Allergies Allergy/AdvReac Type Severity Reaction Status Date / Time acetaminophen Allergy Nausea & Verified 02/09/24 13:48 [From Darvocet-N] Vomiting propoxyphene Allergy Nausea & Verified 02/09/24 13:48 [From Darvocet-N] Vomiting Objective - Vital Signs Vital signs: Vital Signs Temp 98.3 F 04/12/24 11:05 Pulse 88 04/12/24 11:05 Resp 16 04/12/24 11:05 BP 134/84 04/12/24 11:05 Pulse Ox 99 04/12/24 11:05 FiO2 Intake & Output 04/11/24 04/12/24 04/12/24 18:59 06:59 18:59 Weight 54.431 kg - Constitutional General appearance: Present: cooperative - EENT Eyes: Present: EOMI ENT: Present: hearing grossly normal - Neck Neck: Present: normal ROM - Respiratory Respiratory: bilateral: CTA - Cardiovascular Rhythm: regular Heart sounds: normal: S1, S2 - Integumentary Integumentary: Present: normal turgor - Musculoskeletal Musculoskeletal: Present: gait normal - Psychiatric Psychiatric: Present: A&O x's 3, appropriate affect, intact judgment & insight - Additional findings Additional findings: Breast Exam: BRA: 32DD Inspection: Bilateral grade 1 ptosis, right nipple is larger than left nipple Palpation: Right breast: Multi positional exam fibrocystic changes, dense breast, milk discharge from the nipple however there is also what appears to be sebum from the upper inner quadrant area of the nipple, no blood on today's exam, firm area behind nipple areolar complex; decreased in size but still draining Right axilla: No adenopathy of concern Left breast: Multi positional exam fibrocystic changes, dense breast, milky discharge from the nipples Left axilla: No adenopathy of concern Assessment and Plan Assessment: Impression: Bloody right nipple discharge which has stopped and now has just some thick nipple discharge Bilateral milky nipple discharge Very dense breast on exam Persistent nipple discharge right side/right nipple complex with mass behind it and larger than on the left side Plan: bilateral breast MRI follow done 03-12-24; ultrasound core biopsy of lesion right breast 2.4 cm masslike lession, aspiration and antibiotics of possible right breast abscess obtain prolactin level; done 6.2 Incision and drainage right nipple abscess Patient with a dark nevus right lower abdomen this needs to be excised would recommend referring to a general surgeon Risk and benefits of the procedure discussed with the patient. Risk include but are not limited to bleeding, infection, reaction to the anesthetic. There is a risk that this will recur, and there may be prolonged healing. She understands and wishes to proceed. CC: Dr. Ryder Boogie
== END ==
LOC: WWCWWP 10:38
PROVIDERS: ATTEND Surgery
DX: N64.52 Nipple discharge (principal); R92.30 Dense breasts, unspecified; Z80.3 Family history of malignant neoplasm of breast; F17.210 Nicotine dependence, cigarettes, uncomplicated; Z88.5 Allergy status to narcotic agent; Z88.6 Allergy status to analgesic agent

== ENCOUNTER 2024-04-17 07:28 | Day surgery (SDC) | payer OTHER ==
[~2024-04-17 07:28] MED LIST: MIDAZOLAM 2 MG/2 ML VIAL IV PRN; Pre Op ABX Message 1 EACH MISC MISCELLANE ONE; fentaNYL (PF) 50 MCG/ML 2 ML AMP IVP PRN
[2024-04-17] MEDS: ACETAMINOPHEN TAB 500 MG TAB PO PRN (08:07)
[2024-04-17] MEDS: LACTATED RINGERS 1,000 ML IV SCH (08:08)
[2024-04-17] MEDS: LIDOCAINE 1% (10MG/ML) FOR IV START INTRADERMA PRN (08:08)
[2024-04-17] MEDS: DEXAMETHASONE SOD PHOSPHATE 4 MG/ML 1 ML VIAL IV ONE (08:08)
[2024-04-17] MEDS: HEPARIN SODIUM,PORCINE 5,000 UNIT/ML 1 ML VIAL SQ PRN (08:08)
[2024-04-17] MEDS: ONDANSETRON 4 MG/2 ML VIAL IVP ONE (08:08)
[2024-04-17] MEDS: IV FLUID CONTINUATION 1,000 ML IV ONE (08:10)
[2024-04-17] MEDS ORDERED: PROPOFOL 10 MG/ML 20 ML VIAL IV ONE (08:39)
[2024-04-17] MEDS ORDERED: fentaNYL (PF) 50 MCG/ML 2 ML AMP ONE (08:39)
[2024-04-17] MEDS ORDERED: LIDOCAINE 1% INJ 10MG/ML (20 ML MDV) ONE (08:39)
[2024-04-17] MEDS: SODIUM CHLORIDE 0.9% 50 ML with ceFAZolin 1 GM IV ONE (08:43)
--- NOTE | 2024-04-17 09:34 | P.BCAON ---
Date of Procedure: 04/17/24 Preoperative Diagnosis: Chronic abscess posterior to right nipple Postoperative Diagnosis: Same Procedure(s) Performed: Incision and drainage chronic abscess right nipple Anesthesia: BRAYDONA Surgeon: Shirlene Childers Estimated Blood Loss (ml): 5 IV fluids (ml): 300 Pathology: other (Abscess wall) Condition: stable Disposition: same day Indications for Procedure: Chronic abscess right nipple Operative Findings: Purulent fluid and abscess cavity/wall of abscess cavity Description of Procedure: The patient is a 33-year-old female with a chronic draining abscess posterior to the right nipple. She was brought to the operative suite and following induction of anesthesia the right nipple areolar area and breast were prepped and draped in a sterile fashion. The area of greatest fluctuance was identified and incised. Purulent drainage was obtained. Additionally what appeared to be wall of abscess cavity was identified and excised. The extent of the abscess cavity appeared to be approximately 1-1/2 cm. It extended from the nipple posteriorly beneath the nipple areolar complex. This was excised. The wound was well irrigated. Hemostasis was attained using the electrocautery device. Two 3-0 nylon sutures were placed at the area of the nipple but the wound was left open and packed using half-inch iodoform gauze. The patient tolerated the procedure in stable condition. All instrument and sponge counts were correct at the end of the case. Cultures were obtained during the case.
[2024-04-17 09:52] VITALS: TEMP 97.2
[2024-04-17 10:04] VITALS: RESP 16
[2024-04-17] MEDS: HYDROmorphone 0.5 MG/0.5 ML SYRINGE IVP PRN (10:23)
[2024-04-17 11:49] VITALS: BP 120/63; PULSE 65
== END 2024-04-17 12:08 | disposition home health service (06) ==
LOC: OR 07:28
PROVIDERS: ATTEND Surgery
DX: N61.1 Abscess of the breast and nipple (principal); E78.5 Hyperlipidemia, unspecified; M79.7 Fibromyalgia; J45.909 Unspecified asthma, uncomplicated; F17.210 Nicotine dependence, cigarettes, uncomplicated; Z79.1 Long term (current) use of non-steroidal anti-inflammatories (NSAID); Z79.899 Other long term (current) drug therapy
CPT/HCPCS: 81025; 87070; 87205; 87075; 19020; J1644; J1100; J0690; J2405; J2003; J3010; J2704; J1171

== ENCOUNTER → 2024-04-27 | Outpatient (CLI) | payer OTHER ==
[2024-04-27 14:07] VITALS: BP 135/77; PULSE 65; RESP 17; TEMP 97.9
--- NOTE | 2024-04-27 14:40 | P.PN ---
Subjective Progress Note Date: 04/27/24 Principal diagnosis: abscess cavity right nipple Chung is status post excision of abscess I&D behind right niopple on 04-17-24. Pathology was reactive skin with dermal inflamation, granulation tissue, adn forgein body type reaction. Cultures 04-20-24 Enterococcus faecalis. Examination: Lungs: Clear Heart: Regular rate and rhythm Incision: Being packed sutures are going to be removed today Impression: Enterococcus faecalis positive culture from wound I have discussed this with Dr. Menendez from infectious disease and he recommends Augmentin 875 1 p.o. twice daily for 10 days the patient and her family are aware of this and this is going to be ordered Plan: Augmentin 875 1 p.o. twice daily for 10 days Follow-up in 10 days Suture removal CC: Dr. Veronica Boogie Objective - Vital Signs Vital signs: Vital Signs Temp 97.9 F 04/27/24 14:05 Pulse 65 04/27/24 14:05 Resp 17 04/27/24 14:05 BP 135/77 04/27/24 14:05 Pulse Ox 100 04/27/24 14:05 FiO2 Intake & Output 04/26/24 04/27/24 04/27/24 18:59 06:59 18:59 Weight 54.431 kg
== END ==
LOC: WWCWWP 13:37
PROVIDERS: ATTEND Surgery
DX: F17.210 Nicotine dependence, cigarettes, uncomplicated (principal); S21.001A Unspecified open wound of right breast, initial encounter; Z88.6 Allergy status to analgesic agent; Z88.5 Allergy status to narcotic agent

== ENCOUNTER → 2024-05-10 | Outpatient (CLI) | payer OTHER ==
[2024-05-10 16:00] VITALS: BP 154/81; PULSE 96; RESP 16; TEMP 98.1
--- NOTE | 2024-05-10 16:28 | P.BCPO ---
Progress Note - Text Progress Note Date: 05/10/24 Subjective Progress Note Date: 05-10-24 Principal diagnosis: abscess cavity right nipple Chung is status post excision of abscess I&D behind right nipple on 04-17-24. Pathology was reactive skin with dermal inflamation, granulation tissue, and foreign body type reaction. Cultures 04-20-24 Enterococcus faecalis. She stopped breast feeding last year in May Examination: Lungs: Clear Heart: Regular rate and rhythm Incision: clean packing changed Impression: Enterococcus faecalis positive culture from wound I have discussed this with Dr. Menendez from infectious disease and he recommends Augmentin 875 1 p.o. twice daily for 10 days the patient and her family are aware of this and this was ordered she completed this on May 07, 2024 Plan: Augmentin 875 1 p.o. twice daily for 10 days completed Follow-up in 2 weeks CC: Dr. Veronica Boogie
== END ==
LOC: WWCWWP 15:16
PROVIDERS: ATTEND Surgery
DX: B95.2 Enterococcus as the cause of diseases classified elsewhere (principal); F17.200 Nicotine dependence, unspecified, uncomplicated; Z88.6 Allergy status to analgesic agent; Z88.5 Allergy status to narcotic agent

== ENCOUNTER → 2024-05-24 | Outpatient (CLI) | payer OTHER ==
--- NOTE | 2024-05-24 13:01 | P.BCPO ---
Progress Note - Text Progress Note Date: 05/24/24 05-24-24 Principal diagnosis: abscess cavity right nipple Chung is status post excision of abscess I&D behind right nipple on 04-17-24. Pathology was reactive skin with dermal inflamation, granulation tissue, and foreign body type reaction. Cultures 04-20-24 Enterococcus faecalis. She stopped breast feeding last year in May Enterococcus faecalis positive culture from wound I have discussed this with Dr. Menendez from infectious disease and he recommends Augmentin 875 1 p.o. twice daily for 10 days the patient and her family are aware of this and this was ordered she completed this on May 07, 2024 Examination: Lungs: Clear Heart: Regular rate and rhythm Incision: clean packing changed Dark nevus with irregular borders inferior to the right breast I have recommended that this be excised Impression: Patient doing well healing from the I&D of abscess on the right breast Patient does have a nevus with irregular borders and is very dark and has been recommended that this be excised this inferior to the right breast Plan: continue present wound care Follow-up 2 weeks for excision of nevus inferior to right breast CC: Dr. Veronica Boogie
[2024-05-24 13:02] VITALS: BP 150/84; PULSE 84; RESP 16; TEMP 98.5
== END ==
LOC: WWCWWP 12:37
PROVIDERS: ATTEND Surgery
DX: N61.1 Abscess of the breast and nipple (principal); F17.210 Nicotine dependence, cigarettes, uncomplicated; Z88.6 Allergy status to analgesic agent

== ENCOUNTER → 2024-07-12 | Outpatient (CLI) | payer OTHER ==
[2024-07-12 13:35] VITALS: BP 146/88; PULSE 89; RESP 16; TEMP 97.9
--- NOTE | 2024-07-12 13:53 | P.BCPO ---
Progress Note - Text Progress Note Date: 07/12/24 07-12-24 Principal diagnosis: abscess cavity right nipple Chung is status post excision of abscess I&D behind right nipple on 04-17-24. Pathology was reactive skin with dermal inflammation, granulation tissue, and foreign body type reaction. Cultures 04-20-24 Enterococcus faecalis. She stopped breast feeding last year in May Enterococcus faecalis positive culture from wound I have discussed this with Dr. Menendez from infectious disease and he recommends Augmentin 875 1 p.o. twice daily for 10 days the patient and her family are aware of this and this was ordered she completed this on May 07, 2024 status post removal of nevis on 06-29-24 compound nevis completely removed She does still have some continued drainage from a pinpoint opening posterior to the right nipple areolar complex. She states it is white in nature and thick. Examination: Lungs: Clear Heart: Regular rate and rhythm Incision from nevus removal clean and dry sutures removed Right Tonja nipple area has a small punctate opening and no drainage is apprecia latosha on today's exam there is however some firmness behind the nipple areolar complex Impression: Right compound nevus totally removed, sutures removed Right breast tonja nipple area small punctate opening with some white thick discharge at times/firmness posterior to right nipple Plan: We have discussed that the firmness posterior to the right nipple is most likely the source of the discharge from the nipple site. We have discussed whether resection in the operating room of the area of firmness and debridement would be necessary. She will follow-up in 1 month to reevaluate this area. CC: Dr. Veronica Boogie
== END ==
LOC: WWCWWP 13:23
PROVIDERS: ATTEND Surgery
DX: L98.9 Disorder of the skin and subcutaneous tissue, unspecified (principal); F17.200 Nicotine dependence, unspecified, uncomplicated; Z88.6 Allergy status to analgesic agent